=== PATIENT | male | born 1955 | race Two or more races ===

== ENCOUNTER 2024-06-11 21:19 | Inpatient (IN) | payer MEDICARE, OTHER ==
[~2024-06-11] VITALS: Ht 170.2 cm; Wt 65.8 kg
[2024-06-11] MEDS ORDERED: ACET-2030 PO (22:36)
[2024-06-11 22:47] LABS: BASOPHILS # (AUTO) 0.1 K/UL (0.0-0.2); EOSINOPHILS # (AUTO) 0.2 K/uL (0.0-0.7); EOSINOPHILS % (AUTO) 2.8 % (0.0-7.0); HEMATOCRIT 28.3 % (36.7-47.1); HEMOGLOBIN 9.5 g/dL (12.5-16.3); LYMPHOCYTES # (AUTO) 1.3 K/uL (0.8-4.8); LYMPHOCYTES % (AUTO) 21.4 % (20.5-51.5); MEAN CORPUSCULAR HGB CONC 34 g/dL (32.5-36.3); MONOCYTES # (AUTO) 0.6 K/uL (0.1-1.30); MONOCYTES % (AUTO) 9.7 % (0.0-11.0); NEUTROPHILS % (AUTO) 65.1 % (38.5-71.5); PLATELET COUNT (AUTO) 229 K/uL (152-348); RED BLOOD CELL COUNT(AUTO) 2.89 MIL/uL (4.06-5.63); RED CELL DISTRIBUTION WIDTH 14.3 % (12.1-16.2); WHITE BLOOD COUNT (AUTO) 6.2 K/uL (3.6-10.2)
[2024-06-11 22:50] LABS: DIFFERENTIAL COMMENT 1
[2024-06-11 22:56] LABS: AMMONIA 18 umol/L (11-32)
[2024-06-11 22:58] LABS: CALCIUM 7.1 mg/dL (8.5-10.1); CARBON DIOXIDE 30 mmol/L (21-32); CHLORIDE 101 mmol/L (98-107); CREATININE 2.9 mg/dL (0.6-1.3); GLUCOSE 149 mg/dL (74-106); POTASSIUM 4.8 mmol/L (3.5-5.1); SODIUM SERUM 137 mmol/L (136-145); UREA NITROGEN, BLOOD 27 mg/dL (7-18)
[2024-06-11] MEDS ORDERED: ATOR80TA PO (23:01)
[2024-06-11] MEDS ORDERED: ASPI81TA31 PO (23:01)
[2024-06-11] MEDS ORDERED: CINA30TA6 PO (23:02)
[2024-06-11 23:04] LABS: ALANINE AMINOTRANSFERASE 31 U/L (16-63); ALBUMIN 2.5 g/dL (3.4-5.0); ALKALINE PHOSPHATASE 85 U/L (50-136); ASPARTATE AMINOTRANSFERASE 25 U/L (15-37); BILIRUBIN,TOTAL 0.4 mg/dL (0.2-1.0); ETHANOL < 3 MG/DL (0-10); TOTAL PROTEIN, SERUM 6.2 g/dL (6.4-8.2)
[2024-06-11] MEDS ORDERED: CLOP75TA33 PO (23:07)
[2024-06-11] MEDS ORDERED: BISA10SU61 RC (23:08)
[2024-06-11] MEDS ORDERED: NA P133E RC (23:10)
[2024-06-11] MEDS ORDERED: FURO40TA5 PO (23:13)
[2024-06-11 23:23] LABS: ACETAMINOPHEN < 10.0 ug/mL (10-30)
[2024-06-12] MEDS ORDERED: INSU100I26 SQ (02:09)
[2024-06-12] MEDS ORDERED: ESCI5TAB PO (02:10)
[2024-06-12] MEDS ORDERED: METO-358 PO (02:11)
[2024-06-12] MEDS ORDERED: MAGN400O6 PO (02:12)
[2024-06-12] MEDS ORDERED: POLY119P2 PO (02:15)
[2024-06-12] MEDS ORDERED: PANT40TA49 PO (02:16)
[2024-06-12] MEDS ORDERED: PHOS NAK PO (02:27)
[2024-06-12] MEDS ORDERED: NA P133E RC (02:27)
[2024-06-12] MEDS ORDERED: AMIN236L PO (02:28)
[2024-06-12 02:31] LABS: *BILIRUBIN,URIN NEGATIVE (NEGATIVE); *BLOOD, URINE 2+ (NEGATIVE); *CLARITY,URINE CLEAR (CLEAR); *COLOR,URINE YELLOW (YELLOW); *KETONES,URINE NEGATIVE (NEGATIVE); *PROTEIN,URINE 2+ (NEGATIVE); *UROBILINOGEN,URINE 0.2 E.U./dl (NORMAL); LEUKOCYTE ESTERASE ,URINE 1+ (NEGATIVE); NITRITE, URINE NEGATIVE (NEGATIVE); PH,URINE 7.5 (5.0-8.0); UGLUCOSE NEGATIVE (NEGATIVE)
[2024-06-12] MEDS ORDERED: SENN8.6T19 PO (02:36)
[2024-06-12] MEDS ORDERED: SODI15DR4 PO (02:42)
[2024-06-12] MEDS ORDERED: SODI15DR4 EACHEYE (02:42)
[2024-06-12] MEDS ORDERED: VITA-287 PO (02:43)
[2024-06-12 02:55] LABS: *AMPHETAMINE, URINE NEGATIVE (NEGATIVE); *BARBITURATE, URINE NEGATIVE (NEGATIVE); *BENZODIAZEPINE, URINE NEGATIVE (NEGATIVE); *CANNABINOID, URINE NEGATIVE (NEGATIVE); *COCCAINE, URINE NEGATIVE (NEGATIVE); *OPIATE, URINE NEGATIVE (NEGATIVE); *PHENCYCLIDINE SCREEN,URINE NEGATIVE (NEGATIVE); FENTANYL, URINE NEGATIVE (NEGATIVE)
[2024-06-12 03:03] LABS: BACTERIA,URINE FEW /HPF (NONE SEEN); MUCUS,URINE MANY /LPF (0-FEW); SQUAMOUS EPITHELIAL CELL,UR NONE SEEN /HPF (NONE SEEN)
[2024-06-12] MEDS ORDERED: CEFTRIAXONE 1 G VIAL ONE (04:06)
[2024-06-12] MEDS: CEFTRIAXONE 1 G in IV DEXTROSE 5% 50 ML IV ONE (04:19)
[2024-06-12] MEDS ORDERED: ACETAMINOPHEN 325 MG TABLET PO PRN (05:15)
[2024-06-12] MEDS ORDERED: REMEDY ESSENTIAL ZINC PASTE 113 GM TP PRN (05:15)
[2024-06-12] MEDS ORDERED: ONDANSETRON 4 MG/2 ML VIAL IV PRN (05:15)
[2024-06-12 06:47] LABS: BASOPHILS % (AUTO) 0.3 % (0.0-2.0); EOSINOPHILS # (AUTO) 0.2 K/uL (0.0-0.7); EOSINOPHILS % (AUTO) 2.9 % (0.0-7.0); HEMATOCRIT 27.4 % (36.7-47.1); HEMOGLOBIN 9.5 g/dL (12.5-16.3); LYMPHOCYTES # (AUTO) 1.4 K/uL (0.8-4.8); LYMPHOCYTES % (AUTO) 18.2 % (20.5-51.5); MEAN CORPUSCULAR HEMOGLOBIN 33.7 uug (23.8-33.4); MEAN CORPUSCULAR HGB CONC 35 g/dL (32.5-36.3); MEAN CORPUSCULAR VOLUME 97.6 fL (73.0-96.2); MONOCYTES # (AUTO) 0.8 K/uL (0.1-1.30); MONOCYTES % (AUTO) 10.4 % (0.0-11.0); NEUTROPHILS # (AUTO) 5.3 K/uL (1.8-8.9); NEUTROPHILS % (AUTO) 68.2 % (38.5-71.5); PLATELET COUNT (AUTO) 239 K/uL (152-348); RED CELL DISTRIBUTION WIDTH 14.5 % (12.1-16.2); WHITE BLOOD COUNT (AUTO) 7.7 K/uL (3.6-10.2)
[2024-06-12 06:50] VITALS: BP 141/66; TEMP 98.8; O2SAT 100
[2024-06-12 06:56] LABS: CALCIUM 7.5 mg/dL (8.5-10.1); CREATININE 3.1 mg/dL (0.6-1.3); MAGNESIUM 1.7 mg/dL (1.8-2.4); PHOSPHOROUS 2.1 mg/dL (2.5-4.9); POTASSIUM 4.4 mmol/L (3.5-5.1)
[2024-06-12 07:00] LABS: DIFFERENTIAL COMMENT 1
[2024-06-12 07:07] LABS: THYROID STIMULATING HORMONE 2.133 mIU/mL (0.358-3.740)
[2024-06-12 07:22] VITALS: BP 141/69; TEMP 98.9; O2SAT 99
[2024-06-12] MEDS: PANTOPRAZOLE SODIUM 40 MG VIAL IV SCH (10:27)
[2024-06-12] MEDS ORDERED: ACET-73 PO (11:15)
[2024-06-12] MEDS ORDERED: ACET325T53 PO (11:17)
[2024-06-12] MEDS ORDERED: SODI1POW44 PO (11:31)
[2024-06-12] MEDS ORDERED: SODI100010 PO (11:36)
[2024-06-12] MEDS: MAGNESIUM OXIDE 400 MG TABLET PO ONE (12:07)
[2024-06-12] MEDS ORDERED: MIRALAX 17 GM POWD.PACK PO PRN (18:45)
[2024-06-12] MEDS ORDERED: BISACODYL 10 MG SUPP.RECT RC PRN (18:45)
[2024-06-12 20:02] VITALS: BP 133/62; TEMP 98.1; O2SAT 99
[2024-06-12] MEDS ORDERED: CEFTRIAXONE 1 G in IV DEXTROSE 5% 50 ML IV SCH (21:00)
[2024-06-12] MEDS: CINACALCET HCL 30 MG TABLET PO SCH (21:54)
[2024-06-13] MEDS: CEFTRIAXONE 1 G in IV DEXTROSE 5% 50 ML IV SCH (04:43)
[2024-06-13 06:00] VITALS: BP 145/71; TEMP 97.6; O2SAT 100
[2024-06-13] MEDS: PANTOPRAZOLE SODIUM 40 MG TABLET.DR PO SCH (06:41)
[2024-06-13 07:32] LABS: BASOPHILS # (AUTO) 0.1 K/UL (0.0-0.2); BASOPHILS % (AUTO) 0.8 % (0.0-2.0); EOSINOPHILS # (AUTO) 0.1 K/uL (0.0-0.7); EOSINOPHILS % (AUTO) 1.6 % (0.0-7.0); HEMATOCRIT 30.2 % (36.7-47.1); HEMOGLOBIN 10.4 g/dL (12.5-16.3); LYMPHOCYTES # (AUTO) 1.1 K/uL (0.8-4.8); LYMPHOCYTES % (AUTO) 12.3 % (20.5-51.5); MEAN CORPUSCULAR HEMOGLOBIN 33.7 uug (23.8-33.4); MEAN CORPUSCULAR HGB CONC 34 g/dL (32.5-36.3); MEAN CORPUSCULAR VOLUME 98.2 fL (73.0-96.2); MONOCYTES # (AUTO) 0.7 K/uL (0.1-1.30); MONOCYTES % (AUTO) 7.2 % (0.0-11.0); NEUTROPHILS % (AUTO) 78.1 % (38.5-71.5); PLATELET COUNT (AUTO) 284 K/uL (152-348); RED BLOOD CELL COUNT(AUTO) 3.08 MIL/uL (4.06-5.63); RED CELL DISTRIBUTION WIDTH 14.4 % (12.1-16.2)
[2024-06-13 07:51] LABS: DIFFERENTIAL COMMENT 1
[2024-06-13 08:00] VITALS: BP 154/75; TEMP 98.6; O2SAT 99
[2024-06-13 08:02] LABS: ALBUMIN 2.5 g/dL (3.4-5.0); BILIRUBIN,TOTAL 0.3 mg/dL (0.2-1.0); CALCIUM 7.4 mg/dL (8.5-10.1); CREATININE 3.5 mg/dL (0.6-1.3); MAGNESIUM 1.6 mg/dL (1.8-2.4); PHOSPHOROUS 2.3 mg/dL (2.5-4.9); POTASSIUM 4.9 mmol/L (3.5-5.1); TOTAL PROTEIN, SERUM 6.5 g/dL (6.4-8.2)
[2024-06-13] MEDS: CLOPIDOGREL 75 MG TABLET PO SCH (08:11)
[2024-06-13] MEDS: ESCITALOPRAM OXALATE 10 MG TABLET PO SCH (08:11)
[2024-06-13] MEDS: SENNOSIDES 1 TABLET PO SCH (08:11)
[2024-06-13] MEDS: METOPROLOL SUCCINATE XL 50 MG TAB.SR.24H PO SCH (08:11)
[2024-06-13] MEDS: ASPIRIN EC 81 MG TABLET.DR PO SCH (08:11)
[2024-06-13] MEDS: PROTEIN SUPPLEMENT (PROSTAT) 30 ML LIQUID PO SCH (08:12)
[2024-06-13] MEDS: VITAMIN B COMPLEX 1 TABLET PO SCH (08:30)
[2024-06-13] MEDS ORDERED: PROTEIN HYDROLYS PO SCH (09:00)
[2024-06-13] MEDS ORDERED: Medication Not On Formulary EA (Escitalopram Oxalate (Lexapro) 5 MG) PO SCH (09:00)
[2024-06-13] MEDS ORDERED: AMINO ACIDS PO SCH (09:00)
[2024-06-13 15:58] VITALS: BP 136/67; TEMP 98.2; O2SAT 98
[2024-06-13 23:30] VITALS: BP 139/58; TEMP 98.5; O2SAT 98
[2024-06-14 06:56] VITALS: BP 131/68; TEMP 97.4; O2SAT 99
[2024-06-14 08:07] VITALS: BP 164/74; TEMP 98.1; O2SAT 93
[2024-06-14 12:10] VITALS: BP 134/60; TEMP 97; O2SAT 100
[2024-06-14 16:04] VITALS: BP 135/72; TEMP 97; O2SAT 100
[2024-06-14 19:00] VITALS: BP 116/51; TEMP 98.5; O2SAT 100
[2024-06-14] MEDS: MEROPENEM 500 MG in IV NORMAL SALINE 50 ML IV SCH (20:40)
[2024-06-15 06:04] VITALS: BP 134/67; TEMP 97.9; O2SAT 100
[2024-06-15 07:39] LABS: BASOPHILS # (AUTO) 0.1 K/UL (0.0-0.2); BASOPHILS % (AUTO) 0.9 % (0.0-2.0); EOSINOPHILS # (AUTO) 0.2 K/uL (0.0-0.7); HEMATOCRIT 31.8 % (36.7-47.1); HEMOGLOBIN 10.8 g/dL (12.5-16.3); LYMPHOCYTES # (AUTO) 1.4 K/uL (0.8-4.8); LYMPHOCYTES % (AUTO) 18.4 % (20.5-51.5); MEAN CORPUSCULAR HGB CONC 34 g/dL (32.5-36.3); MEAN CORPUSCULAR VOLUME 97.3 fL (73.0-96.2); MONOCYTES # (AUTO) 0.7 K/uL (0.1-1.30); MONOCYTES % (AUTO) 9.9 % (0.0-11.0); NEUTROPHILS % (AUTO) 67.8 % (38.5-71.5); PLATELET COUNT (AUTO) 295 K/uL (152-348); RED BLOOD CELL COUNT(AUTO) 3.27 MIL/uL (4.06-5.63); RED CELL DISTRIBUTION WIDTH 14.4 % (12.1-16.2); WHITE BLOOD COUNT (AUTO) 7.4 K/uL (3.6-10.2)
[2024-06-15 08:08] LABS: DIFFERENTIAL COMMENT 1
[2024-06-15 08:20] LABS: CALCIUM 7.5 mg/dL (8.5-10.1); CREATININE 3.4 mg/dL (0.6-1.3); MAGNESIUM 1.9 mg/dL (1.8-2.4); PHOSPHOROUS 3.8 mg/dL (2.5-4.9); POTASSIUM 4.7 mmol/L (3.5-5.1)
[2024-06-15] MEDS: CHOLECALCIFEROL 1,000 UNIT TABLET PO SCH (08:24)
[2024-06-15 11:35] VITALS: BP 131/65; TEMP 97.6; O2SAT 98
[2024-06-15 16:00] VITALS: BP 102/69; TEMP 98.4; O2SAT 100
[2024-06-15] MEDS ORDERED: MENT113O TP (18:23)
[2024-06-15] MEDS ORDERED: MERO500V23 IV (18:23)
[2024-06-15] MEDS ORDERED: ASPI-618 PO (18:23)
[2024-06-15] MEDS ORDERED: ACET325T53 PO (18:23)
[2024-06-15] MEDS ORDERED: CHOL100062 PO (18:23)
[2024-06-15] MEDS ORDERED: METO-357 PO (18:23)
[2024-06-15] MEDS ORDERED: CHOL10005 PO (18:48)
[2024-06-15] MEDS ORDERED: FERR325T6 PO (18:48)
== END 2024-06-15 17:30 | DRG 871 ==
LOC: ER 21:19 → MEDSURG3 06-12 04:53
PROVIDERS: ADMIT Nurse Practitioner Family; ATTEND Internal Medicine
PROC: 5A1D70Z Performance of Urinary Filtration, Intermittent, Less than 6 Hours Per Day (ICD-10-PCS; principal; 2024-06-13)
DX: A41.59 Other Gram-negative sepsis (principal); E43 Unspecified severe protein-calorie malnutrition; N18.6 End stage renal disease; G92.8 Other toxic encephalopathy; N39.0 Urinary tract infection, site not specified; Z16.12 Extended spectrum beta lactamase (ESBL) resistance; F01.53 Vascular dementia, unspecified severity, with mood disturbance; N25.81 Secondary hyperparathyroidism of renal origin; R45.851 Suicidal ideations; I12.0 Hypertensive chronic kidney disease with stage 5 chronic kidney disease or end stage renal disease; J90 Pleural effusion, not elsewhere classified; D68.59 Other primary thrombophilia; R65.20 Severe sepsis without septic shock; B96.4 Proteus (mirabilis) (morganii) as the cause of diseases classified elsewhere; F32.A Depression, unspecified; Z89.512 Acquired absence of left leg below knee; N25.0 Renal osteodystrophy; E11.22 Type 2 diabetes mellitus with diabetic chronic kidney disease; Z99.2 Dependence on renal dialysis; M81.0 Age-related osteoporosis without current pathological fracture; K21.9 Gastro-esophageal reflux disease without esophagitis; E11.51 Type 2 diabetes mellitus with diabetic peripheral angiopathy without gangrene; D50.9 Iron deficiency anemia, unspecified; Z68.22 Body mass index [BMI] 22.0-22.9, adult; E83.42 Hypomagnesemia; D63.1 Anemia in chronic kidney disease
CPT/HCPCS: 36415; 70450; 71045; 82652; 83550; 83735; 84100; 84153; 84443; 85025; 87040; 87077; 87086; A4606; C1758; G0378; G0480; J0696; J2185; J2470